=== PATIENT | male | born 1980 | race Caucasian/White ===

== ENCOUNTER 2022-08-06 22:14 | Emergency (ER) | payer OTHER ==
[2022-08-06] MEDS ORDERED: DEXAMETHASONE SOD PHOSPHATE 10 MG/ML 1 ML VIAL IVP STA (22:44)
[2022-08-06] MEDS ORDERED: KETOROLAC 15 MG/ML 1 ML VIAL IVP STA (22:44)
--- NOTE | 2022-08-06 22:44 | ED ---
Back Pain HPI - General Chief Complaint: Back Pain/Injury Stated Complaint: Back Pain Time Seen by Provider: 08/06/22 22:31 Source: EMS Limitations: no limitations - History of Present Illness Initial Comments: Patient is a 42-year-old male presenting with chief complaint of lower back pain. Patient states he has a history of sciatic nerve pain. Patient was doing stretches to prevent sciatic nerve pain flareups when the pain began. Pain is located primarily on the left side and radiated down the leg. He states that the entire side felt extremely tense. He admitted to numbness and tingling shooting down the leg. No loss of bowel or bladder control or saddle paresthesia. No injury or trauma. Patient was brought here by EMS and given morphine. By the time of my assessment patient reports significant improvement in his pain rating it a 2 out of 10. - Related Data Previous Rx's Medication Instructions Recorded Cyclobenzaprine [Flexeril] 10 mg PO HS PRN #20 tab 08/06/22 Lidocaine 5% Patch [Lidoderm 5% 1 patch TOPICAL DAILY PRN #1 pack 08/06/22 Patch] methylPREDNISolone Dose Pack 4 mg PO DIRECTED #1 packet 08/06/22 [Medrol Dose Pack] Allergies Allergy/AdvReac Type Severity Reaction Status Date / Time amoxicillin Allergy Rash/Hives Verified 08/06/22 22:22 Review of Systems ROS Statement: Those systems with pertinent positive or pertinent negative responses have been documented in the HPI. ROS Other: All systems not noted in ROS Statement are negative. Past Medical History Additional Past Medical History / Comment(s): back pain History of Any Multi-Drug Resistant Organisms: None Reported Past Surgical History: No Surgical Hx Reported Past Psychological History: Anxiety, Panic Disorder Smoking Status: Never smoker Past Alcohol Use History: Rare Past Drug Use History: None Reported General Exam Limitations: no limitations General appearance: alert, in no apparent distress Head exam: Present: atraumatic, normocephalic, normal inspection Eye exam: Present: normal appearance Neck exam: Present: normal inspection Back exam: Present: normal inspection. Absent: tenderness, muscle spasm Neurological exam: Present: alert, oriented X3, CN II-XII intact Psychiatric exam: Present: normal affect, normal mood Skin exam: Present: warm, dry, intact, normal color. Absent: rash Course Vital Signs 08/06/22 22:19 Temperature 98 F Pulse Rate 83 Respiratory 18 Rate Blood Pressure 126/81 O2 Sat by Pulse 100 Oximetry Medical Decision Making - Medical Decision Making Was pt. sent in by a medical professional or institution? @No Did you speak to anyone other than the patient for history? @No Did you review nursing and triage notes? @Note was reviewed, note was vague and did not mention method of injury or being brought in by EMS and being given morphine by EMS Were old charts reviewed? @No Differential Diagnosis? @ MDM Differential Back Pain: Strain, cauda equina syndrome, fracture, subluxation, disc herniation, DJD, spinal stenosis, EKG interpreted by me (3pts min.)? @ [none] X-rays interpreted by me (1pt min.)? @Yes CT interpreted by me (1pt min.)? @ [none] U/S interpreted by me (1pt. min.)? @ [none] What testing was considered but not performed? (CT, X-rays, U/S, labs)? Why? @None What meds were considered but not given? Why? @ [none] Did you discuss the management of the patient with other professionals? @Discussed with my attending Dr. De La Cruz Did you reconcile home meds? @ [none] Was smoking cessation discussed for >3mins.? @ [none] Was critical care preformed (if so, how long)? @ [none] Were there social determinants of health that impacted care today? How? (Homelessness, low income, unemployed, alcoholism, drug addiction, transportation, low edu. Level, literacy, decrease access to med. care, assisted, rehab)? @None Was there de-escalation of care discussed even if they declined? (Discuss DNR or withdrawal of care, Hospice)? @No What co-morbidities impacted this encounter? (DM, HTN, Smoking, COPD, CAD, Cancer, CVA, Hep., AIDS, mental health diagnosis, sleep apnea, morbid obesity)? @None Was patient admitted / discharged? @Patient was brought in by EMS for back pain that started this evening at home. Patient was doing his lower back stretches when the pain started. Patient was given morphine by EMS. By the time of my evaluation patient states his pain is a 2 out of 10 has significantly improved. He denies any red flag symptoms, no loss of bowel or bladder control or saddle paresthesia. No midline tenderness on palpation. X-ray shows no acute process. Patient was given Toradol and Decadron here in the ER. He is sent a prescription for Flexeril, lidocaine patches, and Medrol Dosepak. Do not take Flexeril before driving or operating heavy machinery as it may cause drowsiness. Please lidocaine patch on for 12 hours and remove for 12 hours. Take Medrol Dosepak as instructed. Take Motrin and Tylenol as needed. Educated on supportive treatment at home. Follow-up with PCP. Report back to ER with any new or worsening symptoms. Discussed return parameters and answered all questions. Patient conveyed verbal understanding and agreed to the plan. I discussed this case in detail with my attending Dr. De La Cruz Undiagnosed new problem with uncertain prognosis? @ [none] Drug Therapy requiring intensive monitoring for toxicity (Heparin, Nitro, Insulin, Cardizem)? @ [none] Were any procedures done? @ [none] Diagnosis/symptom? @Sciatica Acute, or Chronic, or Acute on Chronic? @Acute on chronic Uncomplicated (without systemic symptoms) or Complicated (systemic symptoms)? @Uncomplicated Side effects of treatment? @ [none] Exacerbation, Progression, or Severe Exacerbation] @ [no] Poses a threat to life or bodily function? @ [no] Disposition Clinical Impression: Sciatica, Strain of lumbar region Disposition: HOME SELF-CARE Condition: Good Instructions (If sedation given, give patient instructions): Low Back Strain (ED), Acute Low Back Pain (ED), Lumbar Radiculopathy (ED) Additional Instructions: Follow-up with PCP. Report back to ER with any new or worsening symptoms. Take medication as prescribed. Do not take cyclobenzaprine before driving or operating heavy machinery as it may cause drowsiness. Take Motrin and Tylenol as needed for pain control. Use heat and ice as needed. Prescriptions: Cyclobenzaprine [Flexeril] 10 mg PO HS PRN #20 tab PRN Reason: Spasms Lidocaine 5% Patch [Lidoderm 5% Patch] 1 patch TOPICAL DAILY PRN #1 pack PRN Reason: Pain methylPREDNISolone Dose Pack [Medrol Dose Pack] 4 mg PO DIRECTED #1 packet Is patient prescribed a controlled substance at d/c from ED?: No Referrals: None,Stated [Primary Care Provider] - 1-2 days Time of Disposition: 23:21
--- NOTE | 2022-08-06 23:16 | XR ---
EXAMINATION TYPE: XR lumbar spine 2 or 3V DATE OF EXAM: 08/06/2022 COMPARISON: NONE HISTORY: Back pain TECHNIQUE: 3 views FINDINGS: The lumbar vertebrae are fairly normal spacing and alignment. Posterior elements are intact . No compression fracture. Sacroiliac joints are intact. No significant disc space narrowing. IMPRESSION: Negative lumbar spine exam. No fracture.
[2022-08-06 23:36] VITALS: BP 124/56; PULSE 82; RESP 20; TEMP 98.1
== END 2022-08-06 23:35 | disposition home or self-care (01) ==
LOC: EC 22:14
DX: S39.012A Strain of muscle, fascia and tendon of lower back, initial encounter (principal); M54.30 Sciatica, unspecified side; F41.9 Anxiety disorder, unspecified; Z88.0 Allergy status to penicillin; X58.XXXA Exposure to other specified factors, initial encounter
CPT/HCPCS: 72100; 99283; 96374; 96375; J1100; J1885